=== PATIENT | male | born 1965 | race Caucasian/White ===

== ENCOUNTER → 2024-10-30 | Outpatient (CLI) | payer MEDICAID, SELFPAY ==
--- NOTE | 2024-10-30 | XR_ITS ---
Examination: Bilateral wrists 6 views Technique: Wrist AP, oblique, lateral each wrist total 6 views Date and time of exam: October 30, 2024 1313 hours INDICATIONS: Bilateral wrist pain beginning one year ago. FINDINGS: Prominent osteopenia Bilateral mild to moderate diffuse narrowing radiocarpal intercarpal and carpometacarpal joints No fractures Soft tissue vascular calcification. No avascular necrosis No erosive arthritis IMPRESSION: Bilateral mild to moderate diffuse narrowing radiocarpal, intercarpal and carpometacarpal joints
--- NOTE | 2024-10-30 | XR_ITS ---
Examination: Bilateral hands, 6 views. Technique: AP, Oblique, Lateral each hand total 6 views Date and time of exam: October 30, 2024 1313 hours INDICATIONS: Bilateral hand pain beginning one year ago Findings: Moderate osteopenia Mild diffuse narrowing joints of the wrist and hand Mild to moderate osteoarthritis interphalangeal joints most prominent second through fifth digits distal interphalangeal joints bilaterally No erosive arthritis No fractures Soft tissue vascular calcification No natalia cortical bone destruction IMPRESSION: Osteoarthritis as above
== END | disposition home or self-care (01) ==
LOC: CDIM 11:20
PROVIDERS: PCP Family Medicine; Referring Provider Nurse Practitioner Gerontology; Visit Provider Nurse Practitioner Gerontology
DX: M19.042 Primary osteoarthritis, left hand (principal); M19.041 Primary osteoarthritis, right hand; M25.832 Other specified joint disorders, left wrist; M25.831 Other specified joint disorders, right wrist
CPT/HCPCS: 73110; 73130

== ENCOUNTER 2025-01-09 16:35 | Inpatient (IN) | payer MEDICAID, SELFPAY ==
--- NOTE | 2025-01-09 16:49 | EKG_ITS ---
[facility] Test Date: 2025-01-09 Pat Name: JOHAN PANDYA Department: Room: - Gender: Male Pcu Rn: : 1965 Requested By: Carlos Darby (DONNA) Order Number: [id number] Reading MD: Carlos Draby (LOBBY CONCIERGE) Measurements Intervals [place] Rate: 89 P: 25 WY: 144 QRS: -16 QRSD: 105 T: 51 QT: 381 QTc: 466 Interpretive Statements SINUS RHYTHM No previous ECG available for comparison /store/S0/[id number]/ecg/[id number].pdf
[2025-01-09 17:00] VITALS: BP 151/81; PULSE 89; RESP 20; TEMP 36.5; O2SAT 96; BMI 27.7
--- NOTE | 2025-01-09 17:20 | XR_ITS ---
Examination: CT abdomen and pelvis without contrast. Coronal 3-D reconstructions. Sagittal 2-D reconstructions. Date and time of exam:January 09, 2025 1841 hours Comparison December 31, 2003 INDICATIONS: Onset of abdominal pain today, history kidney stones CTDI: vol (mGy): 8.06 DLP: (mGycm): 549 Technique: Axial images of the abdomen have been obtained, 3 mm slice thickness Intravenous contrast material has not been administered. Low dose protocols were performed. One or more of the following dose reduction techniques were used; automated exposure control, adjustment of the mA and/or KV according to patient size, use of iterative reconstruction technique. Findings: No focal liver or splenic lesions No gallstones Fatty replacement in the pancreas Normal adrenal glands Perinephric stranding No hydronephrosis or ureteral calculi Aortic calcification no aneurysmal dilatation No bowel obstruction Normal appendix No diverticulitis No bladder mass or bladder calculi No prostatomegaly IMPRESSION: Prominent fatty replacement throughout the pancreas, clinical correlation is advised Perinephric stranding No hydronephrosis or ureteral calculi Normal appendix No bladder mass or bladder calculi
--- NOTE | 2025-01-09 17:20 | PD.EDRME ---
Rapid Medical Screening Exam RME Arrival date/time: 01/09/25 16:35 59-year-old male presents to the Emergency Department today for complaint of abdominal pain Chief Complaint: Dizziness Vital signs: Vital Signs Temperature 97.7 F 01/09/25 17:00 Pulse Rate 89 01/09/25 17:00 Respiratory Rate 20 01/09/25 17:00 Blood Pressure 151/81 H 01/09/25 17:00 Pulse Oximetry (%) 96 01/09/25 17:00 Oxygen Delivery Method Room Air 01/09/25 17:00
[2025-01-09 17:43] LABS: Basophils % (Auto) 0 % (0-2.5); Eosinophils % (Auto) 0 % (0-10); Hematocrit 46.8 % (41.0-53.0); Hemoglobin 16.9 g/dL (13.5-16.0); Immature Granulocytes % (Auto) 0 % (0-0); Immature Granulocytes Auto 0.06 Thou/mm3 (0.00-0.00); Lymphocytes # (Auto) 0.7 Thou/mm3 (1.0-4.8); Lymphocytes % (Auto) 5 % (10-50); Mean Corpuscular HGB Conc 36.1 g/dl (31.0-37.0); Mean Corpuscular Hemoglobin 31.2 pg (25.0-35.0); Mean Corpuscular Volume 86 fL (80-100); Monocytes # (Auto) 0.5 Thou/mm3 (0.0-0.8); Monocytes % (Auto) 3 % (0-12); Neutrophils % (Auto) 91 % (37-80); Nucleated Red Blood Cell % 0 /100 WBC (0); Platelet Count 244 Thou/mm3 (140-440); RDW Standard Deviation 38.8 fL (35.1-43.9); Red Blood Count 5.42 Miln/mm3 (4.50-5.90); White Blood Count 14.3 Thou/mm3 (3.8-10.6)
[2025-01-09 17:54] LABS: Alanine Aminotransferase 19 U/L (10-49); Albumin, Serum 4.8 gm/dL (3.5-5.0); Albumin/Globulin Ratio 1.7 (1.2-2.2); Alkaline Phosphatase 120 U/L (46-116); Anion Gap 22 (7-16); Aspartate Amino Transferase 21 U/L (0-34); BUN/Creatinine Ratio 17 Ratio (12-20); Bilirubin,Total 0.6 mg/dL (0.3-1.2); Blood Urea Nitrogen 19 mg/dL (9-23); Calcium 9.8 mg/dL (8.3-10.6); Calcium (Corrected) 9.8 mg/dL (8.5-10.1); Carbon Dioxide 18.4 mMol/L (20.0-31.0); Chloride 103 mMol/L (98-107); Creatinine (Component) 1.1 mg/dL (0.6-1.3); Estimated Creatinine Clearance 73.4 mL/min (>60); Globulin 2.8 gm/dL (2.3-3.5); Glucose 372 mg/dL (74-106); Lipase 25 U/L (12-53); Osmolality,Calculated 302 (275-295); Potassium 5.1 mMol/L (3.4-5.1); Sodium 143 mMol/L (136-145); Total Protein 7.6 gm/dL (5.7-8.2); Troponin I < 0.020 ng/mL (0.0-0.045); eGFR > 60 See Note
--- NOTE | 2025-01-09 20:27 | PC.NURSE ---
N/A FROM LOBBY WHEN CALLING FOR URINE SAMPLE
[2025-01-09 21:50] LABS: Collection Type, Urine Clean Catch
[2025-01-09 21:59] LABS: Bacteria,Urine Rare; Bilirubin,Urine Negative (Negative); Blood,Urine Negative (Negative); Clarity,Urine Clear (Clear/Hazy); Color,Urine Lt-Yellow (Lt Yel-Yel); Culture Indicated,Urine Not Indicated; Glucose, Urine 4+ (Negative); Ketones,Urine 3+ (Negative); Leukocyte Esterase,Urine Positive (Negative); Nitrite,Urine Negative (Negative); PH,Urine 5.5 (5.0-7.0); Protein,Urine Negative (Neg - Trace); RBC,Urine 18 /hpf (0-3); Specific Gravity,Urine 1.034 (1.001-1.035); Squamous Epithelial Cell,Urine 2 /hpf (0-5); Urobilinogen,Urine Negative mg/dL (0.0-1.0); WBC,Urine 8 /hpf (0-5)
[2025-01-09 23:00] VITALS: BP 147/77; PULSE 86; RESP 20; TEMP 36.6; O2SAT 95
[2025-01-10] VITALS (21 sets, daily range): BP systolic 134–160; BP diastolic 74–89; PULSE 70–97; RESP 12–20; TEMP 36.3–37; O2SAT 94–99; BMI 27.5
[2025-01-10 02:46] LABS: Lactate (Lactic Acid) 3.2 mMol/L (0.4-2.0)
[2025-01-10] MEDS: ONDANSETRON INJ 2 MG/ML INJ 2 ML 4 MG IVP (02:47)
[2025-01-10] MEDS: SODIUM CHLORIDE 0.9% 1000 ML 1,000 ML 999 ML IV ×2 (02:47→02:49)
[2025-01-10 02:48] LABS: Base Excess -10 (-3-3); HCO3 15 mEq/L (20-26); Inspired Oxygen, FIO2 21 %; O2 Saturation 98 % (91-98); PCO2 29 mmHg (32.0-48.0); PO2 93 mmHg (83-108); pH, Arterial 7.32 (7.35-7.45)
[2025-01-10 02:57] LABS: Beta Hydroxybutyrate > 6.4 mmol/L (<0.6)
[2025-01-10 02:57] LABS: Allen Test Performed/OK; Puncture Site Right Radial
[2025-01-10 03:18] LABS: Anion Gap 25 (7-16); BUN/Creatinine Ratio 17 Ratio (12-20); Blood Urea Nitrogen 22 mg/dL (9-23); Carbon Dioxide 16.4 mMol/L (20.0-31.0); Chloride 105 mMol/L (98-107); Creatinine (Component) 1.3 mg/dL (0.6-1.3); Estimated Creatinine Clearance 62.1 mL/min (>60); Glucose 333 mg/dL (74-106); Osmolality,Calculated 306 (275-295); Potassium 4.6 mMol/L (3.4-5.1); Sodium 146 mMol/L (136-145); eGFR > 60 See Note
--- NOTE | 2025-01-10 04:35 | PD.EDNV ---
Nausea/Vomit./Diarrhea-RME/HPI General Chief complaint: Dizziness Stated complaint: DIZZY, VOMITING STARTED 4AM Time Seen by Provider: 01/10/25 03:06 Arrival date/time: 01/09/25 16:35 RME / HPI RME / HPI Narrative: 01/09/25 16:35 59-year-old male presents to the Emergency Department today for complaint of abdominal pain DR ROD MAIN ED EVALUATION: 59 y/o male with Hx of Type II DM and HTN presents to ED c/o dizziness, nausea, vomiting, and elevated blood sugar x 24 hours. Patient denies Hx of DKA or any other associated symptoms or aggravating factors. No modifying factors, no radiation, no migration. No pain reported overall. No other concerns or complaints expressed at this time. Related Data Home Medications ?Medication ?Instructions ?Recorded ?Confirmed atorvastatin 40 mg tablet 40 mg PO HS 11/21/23 11/21/23 empagliflozin 25 mg tablet 25 mg PO QDAY 11/21/23 11/21/23 (Jardiance) lisinopril 20 12.5 - 20 tab PO QDAY 11/21/23 11/21/23 mg-hydrochlorothiazide 12.5 mg tablet sitagliptin phosphate 50 50 - 1,000 tab PO QDAY 11/21/23 11/21/23 mg-metformin 1,000 mg tablet (Janumet) sulfamethoxazole 800 160 - 180 tab PO BID 11/21/23 11/21/23 mg-trimethoprim 160 mg tablet Allergies Allergy/AdvReac Type Severity Reaction Status Date / Time No Known Allergies Allergy Verified 01/09/25 16:39 Review of Systems Review of Systems Systems Reviewed: All systems reviewed, normal except as documented Past Medical History Past Medical History CARDIAC: Positive Cardiac Disorders, Hypercholesterolemia and Hypertension ENDOCRINE: Positive Endocrine Disorders and Diabetes Mellitus Type 2 ED Exam Narrative Physical exam: GENERAL APPEARANCE: alert and oriented x 4, well-developed, well-nourished, no acute distress VITALS: All vitals were reviewed and the pulse ox is 99% on room air, which is normal according to my interpretation. HEENT: Normocephalic, atraumatic; pupils equal, round, reactive to light; EOMI; mucous membranes pink, moist; oropharynx clear NECK: Supple LUNGS: CTABL; no wheezes, no rales, no rhonchi HEART: Regular rate, regular rhythm; normal S1, S2; no murmurs ABDOMEN: non distended; normal BS; soft, no tenderness, no guarding, no rebound; no masses, no organomegaly, no hernia BACK: no CVA tenderness EXTREMITIES: atraumatic; no edema NEUROLOGIC: awake; alert and oriented x4; cranial nerves II-XII grossly intact; no focal sensory or motor deficits PSYCHIATRIC: appropriate mood and affect SKIN: warm, dry, normal color; no rashes Course Quality Measures none Orders Category Date Time Status EKG (ED ONLY) *Do not use* NOW Care 01/09/25 16:[address] abdomen pelvis wo con Stat Exams 01/09/25 17:20 Completed EKG (ED Only) Stat Exams 01/09/25 16:49 Draft ABG [Arterial Blood Gas] Stat Lab 01/10/25 02:43 Completed BMP [Basic Metabolic Panel] Stat Lab 01/10/25 02:39 Completed BMP [Basic Metabolic Panel] Stat Lab 01/10/25 04:44 Completed Beta Hydroxybutyrate Stat Lab 01/10/25 02:39 Completed CBC Stat Lab 01/09/25 17:26 Completed Comprehensive Metabolic Panel Stat Lab 01/09/25 17:26 Completed Lactic Acid [Lactate (Lactic Acid)] Stat Lab 01/10/25 02:39 Completed Lactic Acid, 3 HR Stat Lab 01/10/25 05:43 Ordered Lipase Stat Lab 01/09/25 17:26 Completed Troponin I Stat Lab 01/09/25 17:26 Completed UA, C/S IF [Urinalysis, C/S if Indicated] Stat Lab 01/09/25 21:40 Completed Ondansetron Inj [Zofran Inj] Med 01/10/25 02:32 Discontinued 4 mg IVP X1 ONE Sodium Chloride 0.9% 1000 ml [Ns] 1,000 ml Med 01/10/25 02:31 Discontinued IV 999 mls/hr Sodium Chloride 0.9% 1000 ml [Ns] 1,000 ml Med 01/10/25 02:32 Discontinued IV 999 mls/hr Vital Signs Vital signs: Vital Signs Temperature 97.7 F 01/09/25 17:00 Pulse Rate 89 01/09/25 17:00 Respiratory Rate 20 01/09/25 17:00 Blood Pressure 151/81 H 01/09/25 17:00 Pulse Oximetry (%) 96 01/09/25 17:00 Oxygen Delivery Method Room Air 01/09/25 17:00 Nausea/Vomiting/Diarrhea MDM Narrative MDM Narrative:: Scribe Attestation: I, Genie Ariza, am scribing for and in the presence of Dr. Rod. Provider Notation: Although this document has been carefully reviewed, there may still be some phonetic and other typographical errors.? These errors are purely grammatical due to imperfections in the software program and should not be construed in any way to? compromise the substance of the patient's medical care during this visit. Patient data External records reviewed:: [facility] previous records (Reviewed prior ED records from 11/21/23. Patient was seen for Bilateral diabetic foot ulcer associated with secondary diabetes mellitus.) Clinical information provided by:: patient Social determinants that could affect healthcare access:: none Patient has the following chronic illnesses:: Hypercholesterolemia, Hypertension, Diabetes Mellitus Type 2 How is presenting disease/condition affected by chronic disease/condition?: exacerbated by Evaluation data The following diagnostics were reviewed and interpreted by me:: lab results, radiology exam(s) and EKG tracing(s) (EKG manual reading, my interpretation: sinus rhythm, rate: 89 bpm, no ST elevation, no acute ischemic changes, interpreted as normal) Lab and/or radiology exams considered but not ordered:: None Interpretation Summary: RADIOLOGY Abdomen/Pelvis CT: Patient: JOHAN PANDYA. Record#: [id number] Birthdate: 1965 Age/Sex: 59 / M Location: [facility] Attending Dr: Ordering Physician: Mehnaz (DONNA)Carlos NP Date of Service: 01/09/25 Procedure(s): CT abdomen pelvis wo [facility] Accession Number(s): [id number] cc: Mehnaz REDDY)Carlos NP; Roshan Wallace MD; Lavon Mendez MD~ Examination: CT abdomen and pelvis without contrast. Coronal 3-D reconstructions. Sagittal 2-D reconstructions. Date and time of exam:January 09, 2025 1841 hours Comparison December 31, 2003 INDICATIONS: Onset of abdominal pain today, history kidney stones CTDI: vol (mGy): 8.06 DLP: (mGycm): 549 Technique: Axial images of the abdomen have been obtained, 3 mm slice thickness Intravenous contrast material has not been administered. Low dose protocols were performed. One or more of the following dose reduction techniques were used; automated exposure control, adjustment of the mA and/or KV according to patient size, use of iterative reconstruction technique. Findings: No focal liver or splenic lesions No gallstones Fatty replacement in the pancreas Normal adrenal glands Perinephric stranding No hydronephrosis or ureteral calculi Aortic calcification no aneurysmal dilatation No bowel obstruction Normal appendix No diverticulitis No bladder mass or bladder calculi No prostatomegaly IMPRESSION: Prominent fatty replacement throughout the pancreas, clinical correlation is advised Perinephric stranding No hydronephrosis or ureteral calculi Normal appendix No bladder mass or bladder calculi Dictated By: Lavon Mendez MD Signed By: <Electronically signed by Lavon Mendez MD in OV> 01/09/25 1926 Medications / Prescriptions Medications / Prescriptions considered but not ordered:: None Medication administrations:: Medication Administration History Discontinued Medications Sodium Chloride (Ns) 1,000 mls @ 999 mls/hr IV .Q1H1M ONE Stop: 01/10/25 03:31 Last Infusion: 01/10/25 03:53 Dose: Infused Documented By: Admin: 01/10/25 02:47 Dose: 999 mls/hr Documented By: DT Sodium Chloride (Ns) 1,000 mls @ 999 mls/hr IV .Q1H1M ONE Stop: 01/10/25 03:32 Last Infusion: 01/10/25 03:53 Dose: Infused Documented By: Admin: 01/10/25 02:49 Dose: 999 mls/hr Documented By: DT Ondansetron HCl (Ondansetron Inj 2 Mg/Ml Inj 2 Ml) 4 mg IVP X1 ONE; Protocol Stop: 01/10/25 02:33 Last Admin: 01/10/25 02:47 Dose: 4 mg Documented By: DT See above if any. Consultations Consultation(s) initiated? (list below): Yes Consultation #1 (Physician, Specialty, Details): Discussed with Dr. Morton for admission. Reviewed the patient?s HPI, PMHx, lab and/or radiology results. Discussed treatment plan. Will consult an admission to the hospitalist. Time: 05:54 Diagnosis Nausea Differential Diagnosis: gastroenteritis, drug-induced nausea and vomiting, dehydration and other (DKA) Most likely diagnosis given after review of the tests above:: DKA Admission Indicated Admission indicated?: indicated Explain why admission is indicated or not indicated:: DKA Admission Request Was there a request for admission?: Yes Admission Attestation Admission request attestation: Discussed case with [] from Hospitalist service regarding admission. Discussed patients ED course, exam findings, labs, and radiology results. The Hospitalist [agrees,declines] to accept the patient for admission. Disposition Plan Disposition Plan: Admit Discharge Plan Prescriptions/Referrals Prescriptions/Med Rec: No Action atorvastatin 40 mg tablet 40 mg PO HS lisinopril-hydrochlorothiazide 20-12.5 mg tablet 12.5 - 20 tab PO QDAY sulfamethoxazole-trimethoprim 800-160 mg tablet 160 - 180 tab PO BID Janumet 50-1,000 mg tablet 50 - 1,000 tab PO QDAY Jardiance 25 mg tablet 25 mg PO QDAY Referrals: Roshan Wallace MD [Primary Care Provider] - In 1 week Problem List Clinical Impression: DKA (diabetic ketoacidosis) Patient/Caregiver Discharge Instructions Print Language: Mozambican
[2025-01-10 05:30] LABS: Anion Gap 21 (7-16); BUN/Creatinine Ratio 20 Ratio (12-20); Blood Urea Nitrogen 20 mg/dL (9-23); Calcium 8.7 mg/dL (8.3-10.6); Carbon Dioxide 16.7 mMol/L (20.0-31.0); Chloride 109 mMol/L (98-107); Estimated Creatinine Clearance 80.7 mL/min (>60); Glucose 243 mg/dL (74-106); Osmolality,Calculated 303 (275-295); Potassium 4.3 mMol/L (3.4-5.1); Sodium 147 mMol/L (136-145); eGFR > 60 See Note
[2025-01-10 05:43] LABS: Reflex Lactate? Y
[2025-01-10 06:04] LABS: Lactic Acid, 3 HR 2.3 mMol/L (0.4-2.0)
--- NOTE | 2025-01-10 06:32 | PC.NURSE ---
[facility] CONTACTED IMAGES AND PKT SENT. DR JUSTIN SPOKE WITH DR. SOFIA RAMIREZ AT THIS TIME WILL PLACE ON WAIT LIST. [facility] [facility] CONTACTED IMAGES AND PKT SENT DR JUSTIN SPOKE WITH DR Henderson
--- NOTE | 2025-01-10 07:42 | PC.NURSE ---
Report received from pm nurse, patient lying in gurmey with at bedside with c/o feeling weak and dizzy. Per pm nurses patient awaiting evalulation by intensivists to be admitted for DKA, patient current FSBS 223, patient denies pain, denies n/v/d, skin is warm dry and pink, patient states he does feel weak, however, denies feeling dizzy. Call light within reach, patient has no other needs at this time. Will await further orders.
--- NOTE | 2025-01-10 07:52 | XR_ITS ---
Examination: AP chest single view TECHNIQUE: AP portable upright chest single view Date and time: January 10, 2025 0911 hours INDICATIONS: Shortness of breath congestion this week. FINDINGS: Normal heart size. Atelectasis, mild in the lingular segment No pneumonia or pulmonary edema Prominent osteopenia IMPRESSION: No pneumonia identified
--- NOTE | 2025-01-10 07:57 | PD.RESHP ---
Documentation for date of: 01/10/25 [facility] History of Present Illness Chief complaint: vomiting and dizziness History of present illness: Patient is [place]-speaking and history obtained via assistance of registered healthcare chief station engineer. Patient is a 59-year-old male past medical history for primary hypertension, hyperlipidemia, qht-khyefid-lawtswpiq diabetes mellitus type 2 with diabetic neuropathy and osteomyelitis left and right great toe presenting with a chief complaint of vomiting and dizziness. Patient says that 2 days ago he started to feel dizzy. Described as constant, not associated with orthostasis. Yesterday morning around 3 AM he woke up and had 3 episodes of black vomiting, denied any bilious vomiting. Since then he felt nauseous and was unable to tolerate any p.o. solids or liquids. Denied any dysuria, fever, diarrhea, sick contacts or recent travel. Also denied any pain in his feet but did describe intermittent sensations of paresthesia and burning in his feet. ED course: BP 151/81, pulse 89, RR 20, temp 90.7 F, SpO2 96% room air. Labs showed bicarb 16.7, beta hydroxybutyrate 6.4, lactic acid 3.2?>2.3, glucose 243. ABG showed pH 7.32, pCO2 29 Chest x-ray showed lingula atelectasis. No signs of consolidation, pulmonary edema or pleural effusion. EKG showed sinus rhythm, rate. No acute ST changes In the ED patient received normal saline 2L IVF bolus and ondansetron 4 Mg IV x 1. Patient will be admitted to the ICU for treatment and management of euglycemic DKA Review of Systems Review of Systems Narrative Review of Systems: GENERAL: Denies fever/chills or diaphoresis. HEENT: Denies headaches or visual changes. Denies discharge. Neuro: Denies unusual weakness or difficulty speaking. CARDIO: Denies chest pain or palpitations. PULM: Denies SOB, coughing or wheezing. GI: As above URO: Denies buring/itching/pain/urinary changes. MSK/EXT/SKIN: Denies joint/skeletal/muscle pain, issues/changes in upper or lower extremities, itchiness, or superficial pain. PSYCH: Cooperative, pleasant mood & affect. The rest of the review of systems is otherwise negative. Past Medical History Past Medical History Comments PMH COMMENT: Past medical history: NIDDM type II Diabetic neuropathy Hyperlipidemia Primary hypertension Osteomyelitis of bilateral left and right great toe Medication list: Atorvastatin 40 Mg p.o. at bedtime Lisinopril/HCTZ 1 tab p.o. daily Jardiance 25 Mg p.o. daily Janumet tab p.o. 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 Has 7 kids Tobacco use: Denies ETHO use: Denies Illicit drug use: Denies Social History Note: lives with . Patient slipped on shampoo in the bathroom 1 month ago and since then has uses a walker for ambulation Family History: No significant Exam Vital Signs Temp Pulse Resp BP Pulse Ox O2 Del Method 98.5 F 91 16 151/89 H 97 Room Air 01/10/25 07:36 01/10/25 07:47 01/10/25 07:36 01/10/25 07:36 01/10/25 07:36 01/10/25 07:36 Narrative Exam Constitutional Alert, oriented x 3 and mild distress. Elderly male HEENT Vision grossly intact. Patent nares. Trachea midline Respiratory Chest normal on inspection and clear auscultation bilaterally Cardiovascular S1 and S2 audible, RRR. No murmurs carotid bruit. No gross JVD. Abdominal Soft, obese and non tender to palpation in all quadrants. BS + Genitourinary No bladder tenderness, no flank pain. Normal to palpation Musculoskeletal Extremities tone within normal limits. No LE edema. Neurological CN II - XII grossly intact. Sensory neuropathy in stocking distribution up to L4 dermatome bilaterally Skin Warm, dry and intact. Toenails dry and cracked on bilateral feet, hammer toes Psychiatric Patient has good affect, is cooperative Results: Labs 01/11/25 05:12 01/11/25 05:12 Labs: Short CBC 01/09/25 Range/Units 17:26 WBC 14.3 H (3.8-10.6) Thou/mm3 Hgb 16.9 H (13.5-16.0) g/dL Hct 46.8 (41.0-53.0) % Plt Count 244 (140-440) Thou/mm3 BMP 01/09/25 01/10/25 01/10/25 17:26 02:39 04:44 Sodium 143 146 H 147 H Potassium 5.1 4.6 D 4.3 Chloride 103 105 109 H Carbon Dioxide 18.4 L 16.4 L 16.7 L BUN 19 22 20 Creatinine 1.1 1.3 1.0 Glucose 372 H 333 H 243 H D Calcium 9.8 10.0 8.7 Cardiac Enzymes 01/09/25 Range/Units 17:26 Troponin I < 0.020 (0.0-0.045) ng/mL Liver Function 01/09/25 Range/Units 17:26 Total Bilirubin 0.6 (0.3-1.2) mg/dL AST 21 (0-34) U/L ALT 19 (10-49) U/L Alkaline Phosphatase 120 H (46-116) U/L Albumin 4.8 (3.5-5.0) gm/dL Urine 01/09/25 Range/Units 21:40 Urine Color Lt-Yellow (Lt Yel-Yel) Urine Clarity Clear (Clear/Hazy) Urine pH 5.5 (5.0-7.0) Ur Specific [place] 1.034 (1.001-1.035) Urine Protein Negative (Neg - Trace) Urine Glucose (UA) 4+ A (Negative) ABG Interpretation ABG results: 01/10/25 02:43 ABG pH 7.32 L ABG pCO2 29 L ABG pO2 93 ABG HCO3 15 L ABG O2 Saturation 98 ABG Base Excess -10 L Quality Measures Quality Measures none Medications Home Medications and Allergies Home Medications ?Medication ?Instructions ?Recorded ?Confirmed ?Type atorvastatin 40 mg tablet 40 mg PO HS 11/21/23 01/11/25 History empagliflozin 25 mg tablet 25 mg PO QDAY 11/21/23 01/11/25 History (Jardiance) lisinopril 20 12.5 - 20 tab PO QDAY 11/21/23 01/11/25 History mg-hydrochlorothiazide 12.5 mg tablet sitagliptin phosphate 50 50 - 1,000 tab PO BIDWM 11/21/23 01/11/25 History mg-metformin 1,000 mg tablet (Janumet) sulfamethoxazole 800 160 - 180 tab PO BID 11/21/23 01/11/25 History mg-trimethoprim 160 mg tablet Allergies Allergy/AdvReac Type Severity Reaction Status Date / Time No Known Allergies Allergy Verified 01/09/25 16:39 Visit Medications Acetaminophen (Acetaminophen 325 Mg Tablet) 650 mg PO Q6H PRN PRN Reason: Fever >100 or pain Stop: 02/09/25 07:48 Dextrose (Dextrose 50%-Water Inj 50 Ml Syringe) 25 ml IV [id number] PRN PRN Reason: Blood Sugar - Low Heparin Sodium (Porcine) (Heparin Sod Inj 5000 Unit/Ml Vial) 5,000 unit SC BID NICOL Stop: 01/24/25 08:59 Potassium Chloride (Kcl Ivpb) 10 meq in 100 mls @ 100 mls/hr IV .Q1H PRN PRN Reason: IF POTASSIUM LESS THAN 3.3 Stop: 02/09/25 07:51 Magnesium Sulfate (Magnesium Sulfate Ivpb) 2 gm in 50 mls @ 25 mls/hr IV .Q2H PRN PRN Reason: PER DKA PROTOCOL Stop: 02/09/25 07:51 Insulin Human Regular 100 unit (/ IV Miscellaneous Supplies) 100 mls @ 8.029 mls/hr IV .[id number] PRN; Protocol PRN Reason: PER PROTOCOL Stop: 02/09/25 07:51 Dextrose/Lactated Ringer's (D5-Lr) 1,000 mls @ 250 mls/hr IV .Q4H PRN PRN Reason: PER PROTOCOL Stop: 02/09/25 07:51 Lactated Ringer's (Lactated Ringers) 1,000 mls @ 250 mls/hr IV .Q4H PRN PRN Reason: PER PROTOCOL Stop: 01/11/25 07:51 Potassium Chloride 20 meq/ (Lactated Ringer's) 1,010 mls @ 250 mls/hr IV .Q4H3M PRN PRN Reason: K LEVEL 3.3 TO 5.3mM/L Stop: 02/09/25 07:51 Potassium Chloride 40 meq/ (Lactated Ringer's) 1,020 mls @ 250 mls/hr IV .Q4H5M PRN PRN Reason: K LEVEL < 3.3 mM/L Stop: 02/09/25 07:51 Potassium Chloride 40 meq/ (Dextrose/Lactated Ringer's) 1,020 mls @ 250 mls/hr IV .Q4H5M PRN PRN Reason: K LEVEL < 3.3mM/L Stop: 02/09/25 07:51 Potassium Cl/Dextrose/Lact Ringer's (Kcl 20 Meq/L In D5-Lr) 20 meq in 1,000 mls @ 250 mls/hr IV .Q4H PRN PRN Reason: K LEVEL 3.3 TO 5.3 mM/L Stop: 02/09/25 07:51 Potassium Chloride (Kcl Ivpb) 10 meq in 100 mls @ 50 mls/hr IV PRN PRN PRN Reason: K LEVEL 3.3 to 5.3 & BG > 200 Stop: 02/09/25 07:51 Potassium Phosphate (Pot Phos 15 Mmol In Ns 250 Ml) 15 mmol in 250 mls @ 62.5 mls/hr IV PRN PRN PRN Reason: Phosphate <= 1mg/dL Stop: 02/09/25 07:51 Sodium Phosphate 15 mmol/ (Sodium Chloride) 255 mls @ 62.5 mls/hr IV .Q4H5M PRN PRN Reason: Phosphate <= 1mg/dL and K> than 5.3 Stop: 02/09/25 07:51 Lactated Ringer's (Lactated Ringers) 1,000 mls @ 1,000 mls/hr IV Q1H NICOL Stop: 01/10/25 09:59 Ondansetron HCl (Ondansetron Inj 2 Mg/Ml Inj 2 Ml) 4 mg IVP Q6H PRN; Protocol PRN Reason: NAUSEA OR VOMITING Stop: 02/09/25 07:48 Pantoprazole Sodium (Pantoprazole Inj 40 Mg Vial) 40 mg IVP BID NICOL Stop: 02/09/25 08:59 Sodium Bicarbonate (Sodium Bicarb Inj 8.4% Syr 50 Ml Syringe) 50 ml IV Q4HR PRN PRN Reason: For ph <= to 7.0 Stop: 02/09/25 07:51 Discontinued Medications Sodium Chloride (Ns) 1,000 mls @ 999 mls/hr IV .Q1H1M ONE Stop: 01/10/25 03:31 Last Infusion: 01/10/25 03:53 Dose: Infused Sodium Chloride (Ns) 1,000 mls @ 999 mls/hr IV .Q1H1M ONE Stop: 01/10/25 03:32 Last Infusion: 01/10/25 03:53 Dose: Infused Ondansetron HCl (Ondansetron Inj 2 Mg/Ml Inj 2 Ml) 4 mg IVP X1 ONE; Protocol Stop: 01/10/25 02:33 Last Admin: 01/10/25 02:47 Dose: 4 mg Assessment & Plan Plan Patient is a 59-year-old male past medical history for primary hypertension, hyperlipidemia, unj-egcszbv-gvymxasit diabetes mellitus type 2 with diabetic neuropathy and osteomyelitis left and right great toe presenting with a chief complaint of vomiting and dizziness. Patient will be admitted to the ICU for treatment and management of euglycemic DKA. ENDO NIDDM type II Euglycemic DKA DDx: Secondary to Jardiance use Dx: - pH 7.32, beta-hydroxybutyrate 6.4, bicarb 16.7, blood glucose 243. - Ketones severely elevated in setting of mildly elevated blood glucose and mild metabolic acidosis. Etiology likely euglycemic DKA secondary to Jardiance Rx: Insulin infusion, IV fluid hydration with LR/D5. Will replete electrolytes as necessary RRX: Insulin glargine 20U SC x 1, lispro 3U SC 3 times daily with meals and correction scale to cover any blood glucose spikes. Will stop insulin infusion 1 hour after subcutaneous insulin is given. HLD Dx: Home medication atorvastatin 40 Mg p.o. at bedtime Rx: Will order lipid panel for a.m. and titrate statin dose accordingly based on ASCVD NEURO Diabetic neuropathy Dx: Endorses history of intermittent burning and tingling sensation in his feet. Has ascending polyneuropathy up to L4 dermatome bilaterally Rx: Gabapentin 300 Mg p.o. x 1. Wound care referral for diabetic foot exam education RRX: Based on response, recommend to start on gabapentin 300 mg p.o. twice daily from tomorrow [facility] History of primary hypertension Dx: Currently BP 141/77. Home medication lisinopril/HCTZ 12.5?20. 1 tab p.o. daily Rx: To start on lisinopril 10 Mg p.o. daily while in hospital RRX: Recommend discontinuing lisinopril/HCTZ combination as outpatient and to continue with either an NATALIE/ARB PULM Lingular atelectasis Dx: Chest x-ray lingular atelectasis seen Rx: Incentive spirometry. Encourage patient to sit out of bed and ambulate once he can tolerate GI/Hep Nausea and vomiting DDx: Secondary to DKA Rx: Ondansetron 4 Mg IV Q6 hourly as needed Coffee-ground vomitus DDx: Racquel-Shabazz tear, PUD Dx: From history patient denied any symptoms of heartburn pre or post meal, also it has been 16 years since he moved from [place]. Risk of H. pylori and PUD low. Most likely dark vomitus from Racquel-Shabazz tear. Rx: Pantoprazole 40 Mg p.o. daily. RRX: Monitor for any further episodes and trend Hb. RENAL Lactic acidosis?resolved DDx: Secondary to DKA Dx: Lactic acid 3.2?>2.3 Rx: No need to further trend lactic acid HEME/ONC Leukocytosis DDx: Secondary to DKA Dx: WBC 13.1 Rx: Monitor on CBC ID History of osteomyelitis Dx: 11/20 foot x-ray showed bilateral osteomyelitis of great toes. Patient was discharged on 14-day course of Clindamycin Rx: - Empirically started on Zosyn 3.375 g IV Q6 hourly and doxycycline 100 Mg IV twice daily. - ESR, CRP, Pro-Henry, HIV and hep C ordered. Blood and urine cultures ordered ? Bilateral foot x-ray ordered RRX: Based on x-ray and inflammatory marker results, will decide on continued treatment with antibiotics ICU Health maintenance: Dispo: Admit to ICU for euglycemic DKA Diet: N.p.o. DVT ppx: Heparin 5000 units IV twice daily GI ppx: Protonix 40mg qD IV lines: 2 pIV Central line: No Arterial line: No Pepper: No Code status: FULL CODE Plan of care discussed with Attending Dr. Hai Smyth MD PGY 1 Disclaimer: This note was dictated by speech recognition. Minor errors in product controller may be present due to voice recognition software. Attending Provider Attestation/Addendum Patient seen and examined with above resident, Kirit Smyth MD. I agree with the findings, assessment, and plan of care as documented except for any differences below. Patient admitted with suspicion of euglycemic DKA. Patient notably is on Jardiance. No other evidence of intra-abdominal pathology. There was noted possible left lingular atelectasis though this was not correlated on abdominal CT though seen on chest film. Patient without any localized infection at this point. Patient placed on IV insulin will transition off to subcutaneous regimen once the patient has normalized bicarbonate and cleared anion gap. Procalcitonin reassuring that there is no infection. EKG was unremarkable for an acute ischemic event. Patient will be transitioned this evening and likely be able to transfer to medicine for ongoing management and optimization prior to discharge in coming days. Total critical care time: Personally spent 30 minutes for review of physiologic parameters, directing plan of care, coordination of care with other specialist, and counseling patient/ at bedside. This is exclusive of time spent teaching housestaff performing any separate billable procedures. Patient required critical care services for DKA without coma, seizures without localized infection, hypokalemia, and hypophosphatemia. Patient remains at significant risk for further morbidity and mortality warranting close monitoring and care when available in the intensive care unit.
--- NOTE | 2025-01-10 08:25 | PC.NURSE ---
Patient signed out AMA states I want to go, i don't want the 3rd platelets, patient educated on risks if she leaves without full plan of care, including possible patient verbalizes understanding, AMA form signed and placed on chart.
[2025-01-10 08:29] LABS: Basophils % (Auto) 0 % (0-2.5); Eosinophils % (Auto) 0 % (0-10); Hematocrit 43.3 % (41.0-53.0); Hemoglobin 15.2 g/dL (13.5-16.0); Immature Granulocytes % (Auto) 1 % (0-0); Immature Granulocytes Auto 0.06 Thou/mm3 (0.00-0.00); Lymphocytes % (Auto) 15 % (10-50); Mean Corpuscular HGB Conc 35.1 g/dl (31.0-37.0); Mean Corpuscular Hemoglobin 31.3 pg (25.0-35.0); Mean Corpuscular Volume 89 fL (80-100); Monocytes # (Auto) 1.1 Thou/mm3 (0.0-0.8); Monocytes % (Auto) 8 % (0-12); Neutrophils % (Auto) 76 % (37-80); Nucleated Red Blood Cell % 0 /100 WBC (0); Platelet Count 228 Thou/mm3 (140-440); RDW Standard Deviation 41.7 fL (35.1-43.9); Red Blood Count 4.86 Miln/mm3 (4.50-5.90); White Blood Count 13.1 Thou/mm3 (3.8-10.6)
[2025-01-10] MEDS: INSULIN REG 100 UNITS/100 ML 100 UNIT in PRE-MIXED 1 BAG 8.029 UNIT IV (08:33)
[2025-01-10] MEDS: RINGERS LACTATED 1000 ML 1,000 ML IV ×2 (08:34→09:38)
[2025-01-10 09:04] LABS: HIV (1&2) Antibody Rapid Non-Reactive
[2025-01-10 09:12] LABS: Albumin, Serum 4.1 gm/dL (3.5-5.0); Anion Gap 15 (7-16); BUN/Creatinine Ratio 19 Ratio (12-20); Blood Urea Nitrogen 19 mg/dL (9-23); Carbon Dioxide 17.9 mMol/L (20.0-31.0); Chloride 111 mMol/L (98-107); Estimated Creatinine Clearance 78.9 mL/min (>60); Glucose 226 mg/dL (74-106); Magnesium 2.2 mg/dL (1.6-2.6); Osmolality,Calculated 296 (275-295); Phosphorous 3.8 mg/dL (2.4-5.1); Potassium 4.8 mMol/L (3.4-5.1); Sodium 144 mMol/L (136-145); eGFR > 60 See Note
[2025-01-10] MEDS: PANTOPRAZOLE INJ 40 MG VIAL 80 MG IVP (09:32)
[2025-01-10] MEDS: HEPARIN SOD INJ 5000 UNIT/ML VIAL SC ×2 (09:33→21:01)
[2025-01-10] MEDS: DOXYCYCLINE INJ 100 MG in SODIUM CHLORIDE 0.9% (POP) 100 ML IV (09:33)
[2025-01-10] MEDS: PIPER/TAZO 3.375 GM PREMIX 3.375 GM/50 ML BAG IV ×2 (09:34→13:47)
[2025-01-10] MEDS: KCL 20 mEq/L in D5-LR 20 MEQ/1,000 ML BAG 250 MEQ IV ×2 (09:59→13:47)
[2025-01-10 10:05] LABS: Procalcitonin 0.08 ng/ml (0.0-0.49)
[2025-01-10 12:49] LABS: Albumin, Serum 3.5 gm/dL (3.5-5.0); Anion Gap 12 (7-16); BUN/Creatinine Ratio 18 Ratio (12-20); Blood Urea Nitrogen 16 mg/dL (9-23); Calcium 8.4 mg/dL (8.3-10.6); Calcium (Corrected) 8.8 mg/dL (8.5-10.1); Carbon Dioxide 20.3 mMol/L (20.0-31.0); Chloride 113 mMol/L (98-107); Creatinine (Component) 0.9 mg/dL (0.6-1.3); Estimated Creatinine Clearance 87.7 mL/min (>60); Glucose 177 mg/dL (74-106); Magnesium 1.9 mg/dL (1.6-2.6); Osmolality,Calculated 293 (275-295); Phosphorous 2.2 mg/dL (2.4-5.1); Potassium 4.1 mMol/L (3.4-5.1); Sodium 145 mMol/L (136-145); eGFR > 60 See Note
--- NOTE | 2025-01-10 13:05 | PC.NURSE ---
unable to complete med rec. Pt to bring medications later in the day
--- NOTE | 2025-01-10 13:19 | ESPR_ITS ---
Subjective Subjective Interval history: afebrile an on iv doxy and iv zosyn. underlying dm and htn Exam Vital Signs Temp Pulse Resp BP Pulse Ox O2 Del Method 98.2 F 83 13 136/77 H 95 Room Air 01/10/25 08:48 01/10/25 11:00 01/10/25 11:00 01/10/25 11:00 01/10/25 11:00 01/10/25 08:48 Narrative Exam if bc neg at 48hr ok to star rx planning. at any time, ok to do surgery but would repeat the xray first as the one on file dates to october. and he report only pain in his L knee. Objective - Internal Medicine Labs 01/10/25 08:15 01/10/25 12:00 Labs: Laboratory Results - last 24 hr 01/09/25 01/09/25 01/10/25 17:26 21:40 02:39 WBC 14.3 H RBC 5.42 Hgb 16.9 H Hct 46.8 MCV 86 MCH 31.2 MCHC 36.1 RDW Std Deviation 38.8 Plt Count 244 Neut % (Auto) 91 H Lymph % (Auto) 5 L [place] % (Auto) 3 Eos % (Auto) 0 Baso % (Auto) 0 Neut # (Auto) 13.0 H Lymph # (Auto) 0.7 L [place] # (Auto) 0.5 Eos # (Auto) 0.0 Baso # (Auto) 0.0 Immature Gran # (Auto) 0.06 H Absolute Nucleated RBC 0.00 Immature Gran % 0 Nucleated RBC % 0 Puncture Site ABG pH ABG pCO2 ABG pO2 ABG HCO3 ABG O2 Saturation ABG Base Excess FiO2 Sodium 143 146 H Potassium 5.1 4.6 D Chloride 103 105 Carbon Dioxide 18.4 L 16.4 L Anion Gap 22 H 25 H BUN 19 22 Creatinine 1.1 1.3 Estim Creat Clear Calc 73.4 62.1 eGFR > 60 > 60 BUN/Creatinine Ratio 17 17 Glucose 372 H 333 H Calculated Osmolality 302 H 306 H Lactic Acid 3.2 H Calcium 9.8 10.0 Corrected Calcium 9.8 Phosphorus Magnesium Total Bilirubin 0.6 AST 21 ALT 19 Alkaline Phosphatase 120 H Troponin I < 0.020 Total Protein 7.6 Albumin 4.8 Globulin 2.8 Albumin/Globulin Ratio 1.7 Lipase 25 Beta-Hydroxybutyrate/Acetoacetate > 6.4 H Procalcitonin Ur Collection Type Clean Catch Urine Color Lt-Yellow Urine Clarity Clear Urine pH 5.5 Ur Specific [place] 1.034 Urine Protein Negative Urine Glucose (UA) 4+ A Urine Ketones 3+ A Urine Blood Negative Urine Nitrite Negative Urine Bilirubin Negative Urine Urobilinogen (Auto) Negative Ur Leukocyte Esterase Positive Urine RBC 18 H Urine WBC 8 H Ur Squamous Epith Cells 2 Urine Bacteria Rare Ur Culture Indicated? Not Indicated HIV 1&2 Antibody Rapid 01/10/25 01/10/25 01/10/25 02:43 04:44 05:56 WBC RBC Hgb Hct MCV MCH MCHC RDW Std Deviation Plt Count Neut % (Auto) Lymph % (Auto) [place] % (Auto) Eos % (Auto) Baso % (Auto) Neut # (Auto) Lymph # (Auto) [place] # (Auto) Eos # (Auto) Baso # (Auto) Immature Gran # (Auto) Absolute Nucleated RBC Immature Gran % Nucleated RBC % Puncture Site Right Radial ABG pH 7.32 L ABG pCO2 29 L ABG pO2 93 ABG HCO3 15 L ABG O2 Saturation 98 ABG Base Excess -10 L FiO2 21 Sodium 147 H Potassium 4.3 Chloride 109 H Carbon Dioxide 16.7 L Anion Gap 21 H BUN 20 Creatinine 1.0 Estim Creat Clear Calc 80.7 eGFR > 60 BUN/Creatinine Ratio 20 Glucose 243 H D Calculated Osmolality 303 H Lactic Acid 2.3 H Calcium 8.7 Corrected Calcium Phosphorus Magnesium Total Bilirubin AST ALT Alkaline Phosphatase Troponin I Total Protein Albumin Globulin Albumin/Globulin Ratio Lipase Beta-Hydroxybutyrate/Acetoacetate Procalcitonin Ur Collection Type Urine Color Urine Clarity Urine pH Ur Specific [place] Urine Protein Urine Glucose (UA) Urine Ketones Urine Blood Urine Nitrite Urine Bilirubin Urine Urobilinogen (Auto) Ur Leukocyte Esterase Urine RBC Urine WBC Ur Squamous Epith Cells Urine Bacteria Ur Culture Indicated? HIV 1&2 Antibody Rapid 01/10/25 01/10/25 08:15 12:00 WBC 13.1 H RBC 4.86 Hgb 15.2 Hct 43.3 MCV 89 MCH 31.3 MCHC 35.1 RDW Std Deviation 41.7 Plt Count 228 Neut % (Auto) 76 Lymph % (Auto) 15 [place] % (Auto) 8 Eos % (Auto) 0 Baso % (Auto) 0 Neut # (Auto) 10.0 H Lymph # (Auto) 2.0 [place] # (Auto) 1.1 H Eos # (Auto) 0.0 Baso # (Auto) 0.0 Immature Gran # (Auto) 0.06 H Absolute Nucleated RBC 0.00 Immature Gran % 1 H Nucleated RBC % 0 Puncture Site ABG pH ABG pCO2 ABG pO2 ABG HCO3 ABG O2 Saturation ABG Base Excess FiO2 Sodium 144 145 Potassium 4.8 D 4.1 D Chloride 111 H 113 H Carbon Dioxide 17.9 L 20.3 Anion Gap 15 12 BUN 19 16 Creatinine 1.0 0.9 Estim Creat Clear Calc 78.9 87.7 eGFR > 60 > 60 BUN/Creatinine Ratio 19 18 Glucose 226 H 177 H Calculated Osmolality 296 H 293 Lactic Acid Calcium 9.0 8.4 Corrected Calcium 9.0 8.8 Phosphorus 3.8 2.2 L Magnesium 2.2 1.9 Total Bilirubin AST ALT Alkaline Phosphatase Troponin I Total Protein Albumin 4.1 D 3.5 D Globulin Albumin/Globulin Ratio Lipase Beta-Hydroxybutyrate/Acetoacetate Procalcitonin 0.08 Ur Collection Type Urine Color Urine Clarity Urine pH Ur Specific [place] Urine Protein Urine Glucose (UA) Urine Ketones Urine Blood Urine Nitrite Urine Bilirubin Urine Urobilinogen (Auto) Ur Leukocyte Esterase Urine RBC Urine WBC Ur Squamous Epith Cells Urine Bacteria Ur Culture Indicated? HIV 1&2 Antibody Rapid Non-Reactive ABG Interpretation ABG results: 01/10/25 02:43 ABG pH 7.32 L ABG pCO2 29 L ABG pO2 93 ABG HCO3 15 L ABG O2 Saturation 98 ABG Base Excess -10 L Assessment & Plan A&P Narrative osteo of foot by xray in November 2024 with no rx at this time dm II, a1c pending htn hld. note that abx only kill germs so please evaluate circulation as part of a 'potential for healing' eval . I can check in again Wednesday am I will find him even if he downgrades to floor. hiv neg. ordered hep c for am and await a1c, cx, esr/crp, and further imaging since last xrays are from November and he only has pain in his L knee and no other sx of note Time Spent With Patient Time: Total time spent is greater than 50% in coordination of care (as documented) at patient's floor/unit and/or counseling patient:
--- NOTE | 2025-01-10 16:26 | XR_ITS ---
Examination: Foot bilateral, 6 views Technique: AP, oblique, lateral views each foot total 6 views Date and time of exam: January 10, 2025 1631 hours INDICATIONS: Redness swelling and pain infection involving both feet beginning 2 days ago FINDINGS: Bilateral severe osteopenia Soft tissue swelling left first digit No natalia areas of cortical bone destruction Soft tissue vascular calcification IMPRESSION: No natalia areas of cortical bone destruction
[2025-01-10] MEDS: INSULIN GLARGINE (Lantus) 5 UNIT/0.05 ML (PER 5 UNITS) 20 UNIT SC (16:33)
--- NOTE | 2025-01-10 16:43 | ESCONSULT_ITS ---
RE: JOHAN PANDYA : 1965 DATE OF CONSULTATION: 01/10/2025 REFERRING PHYSICIAN: Dr. Gamez REASON FOR CONSULTATION: Left knee pain without range of motion, limitations and abnormal x-rays dating back to November. HISTORY OF PRESENT ILLNESS: The patient is a pleasant gentleman. He has not had any recent imaging. He is admitted for DKA. His A1c is pending. He has hypertension and hyperlipidemia as well. Surgical history is none. ALLERGIES: NONE NOTED. IMMUNIZATIONS: Last tetanus is not known. He has not had flu shot every year. He has had one COVID vaccine. He has not had pneumococcal vaccination. FAMILY HISTORY: Unremarkable. SOCIAL HISTORY: He lives with his . 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 PHYSICAL EXAMINATION: General: The patient is pleasant, alert, and cooperative. ABDOMEN: His left foot is uninflamed and the left knee is the only thing that shows an irregularity, but both feet are uninflamed. In fact, there is no involvement of the toes as suggested by radiology. I note on review that the distal phalanges are where the problems are, but those are often difficult to evaluate by the radiologist. IMPRESSION: His sed rate in November was just 22, so it is possible that those are fairly unimpressive. ASSESSMENT: I have a tendency to not treat him at all unless we find some signs of infection, so you want to repeat the x-rays. We will get a sed rate and C-reactive protein tomorrow and acute hepatitis panel , but it is unlikely that he has viral hepatitis. I note that his HIV test is negative. We will check on him superficially on Wednesday. DT: 14:31:08 TT: 16:24:00 Ref: [id number] - TID: [id number]
--- NOTE | 2025-01-10 17:35 | ESPR_ITS ---
Documentation for date of: 01/10/25 Subjective Subjective Interval history: Patient is a 59-year-old male with past medical history of primary hypertension, hyperlipidemia, pfa-rjyekqs-ncmfmauaa diabetes mellitus on Janumet and Jardiance, was admitted to ICU for a glycemic DKA requiring insulin drip. Patient was seen and examined at bedside. No acute events was noted, patient transition to subcutaneous insulin 20 units x 1, also started on 3 times daily with meals lispro, will continue close monitor, Jardiance is stopped. Hemodynamically patient is stable, x-ray of the foot was ordered which was negative for any cortical bone destruction, noticed to have soft tissue swelling on the left first digit, soft tissue vascular calcification, bilateral severe osteopenia. And antibiotics were stopped. Exam Vital Signs Temp Pulse Resp BP Pulse Ox O2 Del Method 98.6 F 75 19 141/77 H 94 L Room Air 01/10/25 16:01/10/25 16:01/10/25 16:01/10/25 16:00 01/10/25 16:01/10/25 16:00 Narrative Exam GENERAL: no acute distress, AAO x3, well nourished. HEENT: Head AT/ NC. Mucous membranes moist. PERRL. NECK: Supple, no lymphadenopathy, no carotid bruits. CARDIOVASCULAR: RRR. Normal S1/S2, No m/r/g. No pitting edema of bilateral LEs. RESPIRATORY: CTAB. No wheezing, rhonchi, crackles. GASTROINTESTINAL: Abdomen soft, non tender no palpable masses. Bowel sounds present in all 4 quadrants. MUSCULOSKELETAL:? No cyanosis or edema, no visible joint swelling. NEUROLOGICAL: CN II-XII grossly intact. No focal deficits. Bilateral sensation loss on bilateral lower extremity, PSYCHIATRIC: Awake and alert, not agitated, normal mood and affect. INTEGUMENTARY: No obvious rashes, no jaundice, normal turgor. Objective Labs 01/11/25 05:12 01/11/25 05:12 Labs: Laboratory Results - last 24 hr 01/09/25 01/09/25 01/10/25 17:26 21:40 02:39 WBC 14.3 H RBC 5.42 Hgb 16.9 H Hct 46.8 MCV 86 MCH 31.2 MCHC 36.1 RDW Std Deviation 38.8 Plt Count 244 Neut % (Auto) 91 H Lymph % (Auto) 5 L [place] % (Auto) 3 Eos % (Auto) 0 Baso % (Auto) 0 Neut # (Auto) 13.0 H Lymph # (Auto) 0.7 L [place] # (Auto) 0.5 Eos # (Auto) 0.0 Baso # (Auto) 0.0 Immature Gran # (Auto) 0.06 H Absolute Nucleated RBC 0.00 Immature Gran % 0 Nucleated RBC % 0 Puncture Site ABG pH ABG pCO2 ABG pO2 ABG HCO3 ABG O2 Saturation ABG Base Excess FiO2 Sodium 143 146 H Potassium 5.1 4.6 D Chloride 103 105 Carbon Dioxide 18.4 L 16.4 L Anion Gap 22 H 25 H BUN 19 22 Creatinine 1.1 1.3 Estim Creat Clear Calc 73.4 62.1 eGFR > 60 > 60 BUN/Creatinine Ratio 17 17 Glucose 372 H 333 H Calculated Osmolality 302 H 306 H Lactic Acid 3.2 H Calcium 9.8 10.0 Corrected Calcium 9.8 Phosphorus Magnesium Total Bilirubin 0.6 AST 21 ALT 19 Alkaline Phosphatase 120 H Troponin I < 0.020 Total Protein 7.6 Albumin 4.8 Globulin 2.8 Albumin/Globulin Ratio 1.7 Lipase 25 Beta-Hydroxybutyrate/Acetoacetate > 6.4 H Procalcitonin Ur Collection Type Clean Catch Urine Color Lt-Yellow Urine Clarity Clear Urine pH 5.5 Ur Specific [place] 1.034 Urine Protein Negative Urine Glucose (UA) 4+ A Urine Ketones 3+ A Urine Blood Negative Urine Nitrite Negative Urine Bilirubin Negative Urine Urobilinogen (Auto) Negative Ur Leukocyte Esterase Positive Urine RBC 18 H Urine WBC 8 H Ur Squamous Epith Cells 2 Urine Bacteria Rare Ur Culture Indicated? Not Indicated HIV 1&2 Antibody Rapid 01/10/25 01/10/25 01/10/25 02:43 04:44 05:56 WBC RBC Hgb Hct MCV MCH MCHC RDW Std Deviation Plt Count Neut % (Auto) Lymph % (Auto) [place] % (Auto) Eos % (Auto) Baso % (Auto) Neut # (Auto) Lymph # (Auto) [place] # (Auto) Eos # (Auto) Baso # (Auto) Immature Gran # (Auto) Absolute Nucleated RBC Immature Gran % Nucleated RBC % Puncture Site Right Radial ABG pH 7.32 L ABG pCO2 29 L ABG pO2 93 ABG HCO3 15 L ABG O2 Saturation 98 ABG Base Excess -10 L FiO2 21 Sodium 147 H Potassium 4.3 Chloride 109 H Carbon Dioxide 16.7 L Anion Gap 21 H BUN 20 Creatinine 1.0 Estim Creat Clear Calc 80.7 eGFR > 60 BUN/Creatinine Ratio 20 Glucose 243 H D Calculated Osmolality 303 H Lactic Acid 2.3 H Calcium 8.7 Corrected Calcium Phosphorus Magnesium Total Bilirubin AST ALT Alkaline Phosphatase Troponin I Total Protein Albumin Globulin Albumin/Globulin Ratio Lipase Beta-Hydroxybutyrate/Acetoacetate Procalcitonin Ur Collection Type Urine Color Urine Clarity Urine pH Ur Specific [place] Urine Protein Urine Glucose (UA) Urine Ketones Urine Blood Urine Nitrite Urine Bilirubin Urine Urobilinogen (Auto) Ur Leukocyte Esterase Urine RBC Urine WBC Ur Squamous Epith Cells Urine Bacteria Ur Culture Indicated? HIV 1&2 Antibody Rapid 01/10/25 01/10/25 08:15 12:00 WBC 13.1 H RBC 4.86 Hgb 15.2 Hct 43.3 MCV 89 MCH 31.3 MCHC 35.1 RDW Std Deviation 41.7 Plt Count 228 Neut % (Auto) 76 Lymph % (Auto) 15 [place] % (Auto) 8 Eos % (Auto) 0 Baso % (Auto) 0 Neut # (Auto) 10.0 H Lymph # (Auto) 2.0 [place] # (Auto) 1.1 H Eos # (Auto) 0.0 Baso # (Auto) 0.0 Immature Gran # (Auto) 0.06 H Absolute Nucleated RBC 0.00 Immature Gran % 1 H Nucleated RBC % 0 Puncture Site ABG pH ABG pCO2 ABG pO2 ABG HCO3 ABG O2 Saturation ABG Base Excess FiO2 Sodium 144 145 Potassium 4.8 D 4.1 D Chloride 111 H 113 H Carbon Dioxide 17.9 L 20.3 Anion Gap 15 12 BUN 19 16 Creatinine 1.0 0.9 Estim Creat Clear Calc 78.9 87.7 eGFR > 60 > 60 BUN/Creatinine Ratio 19 18 Glucose 226 H 177 H Calculated Osmolality 296 H 293 Lactic Acid Calcium 9.0 8.4 Corrected Calcium 9.0 8.8 Phosphorus 3.8 2.2 L Magnesium 2.2 1.9 Total Bilirubin AST ALT Alkaline Phosphatase Troponin I Total Protein Albumin 4.1 D 3.5 D Globulin Albumin/Globulin Ratio Lipase Beta-Hydroxybutyrate/Acetoacetate Procalcitonin 0.08 Ur Collection Type Urine Color Urine Clarity Urine pH Ur Specific [place] Urine Protein Urine Glucose (UA) Urine Ketones Urine Blood Urine Nitrite Urine Bilirubin Urine Urobilinogen (Auto) Ur Leukocyte Esterase Urine RBC Urine WBC Ur Squamous Epith Cells Urine Bacteria Ur Culture Indicated? HIV 1&2 Antibody Rapid Non-Reactive ABG Interpretation ABG results: 01/10/25 02:43 ABG pH 7.32 L ABG pCO2 29 L ABG pO2 93 ABG HCO3 15 L ABG O2 Saturation 98 ABG Base Excess -10 L Quality Measures Quality Measures none Assessment & Plan Assessment Current Active Medications: Generic Name Dose Route Start Last Admin Trade Name Freq PRN Reason Stop Dose Admin Acetaminophen 650 mg 01/10/25 07:49 Acetaminophen 325 Mg Tablet PO 02/09/25 07:48 Q6H PRN Fever >100 or pain Dextrose 25 ml 01/10/25 07:52 Dextrose 50%-Water Inj 50 Ml Syringe IV [id number] PRN Blood Sugar - Low Dextrose 50 ml 01/10/25 16:22 Dextrose 50%-Water Inj 50 Ml Syringe IV 02/09/25 16:21 Q15MIN PRN BG <50 OR BG <70 & pt unresponsive Glucagon 1 mg 01/10/25 16:22 Glucagon Inj 1 Mg Vial IM Q15MIN PRN BG <70, and no IV access Heparin Sodium (Porcine) 5,000 unit 01/10/25 09:00 01/10/25 09:33 Heparin Sod Inj 5000 Unit/Ml Vial SC 01/24/25 08:59 5,000 unit BID NICOL Administration Magnesium Sulfate 2 gm in 50 mls @ 25 mls/hr 01/10/25 07:52 Magnesium Sulfate Ivpb IV 02/09/25 07:51 .Q2H PRN PER DKA PROTOCOL Insulin Human Regular 100 unit 100 mls @ 8.029 mls/hr 01/10/25 07:52 01/10/25 15:00 / IV Miscellaneous Supplies IV 02/09/25 07:51 0.025 unit/kg/hr .[id number] PRN 2.007 mls/hr PER PROTOCOL Titration Protocol 0.1 UNIT/KG/HR Lactated Ringer's 1,000 mls @ 250 mls/hr 01/10/25 07:52 Lactated Ringers IV 01/11/25 07:51 .Q4H PRN PER PROTOCOL Potassium Chloride 10 meq in 100 mls @ 100 mls/hr 01/10/25 11:46 Kcl Ivpb IV 02/09/25 11:45 .Q1H PRN IF POTASSIUM LESS THAN 3.3 Dextrose/Lactated Ringer's 1,000 mls @ 250 mls/hr 01/10/25 11:47 D5-Lr IV 02/09/25 11:46 .Q4H PRN PER PROTOCOL Potassium Chloride 20 meq/ 1,010 mls @ 250 mls/hr 01/10/25 11:47 Lactated Ringer's IV 02/09/25 11:46 .Q4H3M PRN K LEVEL 3.3 TO 5.3mM/L Potassium Chloride 40 meq/ 1,020 mls @ 250 mls/hr 01/10/25 11:47 Lactated Ringer's IV 02/09/25 11:46 .Q4H5M PRN K LEVEL < 3.3 mM/L Potassium Chloride 40 meq/ 1,020 mls @ 250 mls/hr 01/10/25 11:47 Dextrose/Lactated Ringer's IV 02/09/25 11:46 .Q4H5M PRN K LEVEL < 3.3mM/L Insulin Human Lispro 3 unit 01/10/25 17:30 Insulin Lispro (Admelog) 1 Unit/0.01 Ml Unit SC 02/09/25 17:29 TIDWM [facility] Insulin Human Lispro 0 unit 01/10/25 17:00 Insulin Lispro (Admelog) 1 Unit/0.01 Ml Unit SC 02/09/25 16:59 ACHS [facility] Protocol Ondansetron HCl 4 mg 01/10/25 07:49 Ondansetron Inj 2 Mg/Ml Inj 2 Ml IVP 02/09/25 07:48 Q6H PRN NAUSEA OR VOMITING Protocol Pantoprazole Sodium 40 mg 01/11/25 09:00 Pantoprazole 40 Mg Tablet PO 02/10/25 08:59 QDAY NICOL Plan Patient is a 59-year-old male past medical history for primary hypertension, hyperlipidemia, pyp-stqsijw-bgpozixus diabetes mellitus type 2 with diabetic neuropathy and osteomyelitis left and right great toe presenting with a chief complaint of vomiting and dizziness. Patient was be admitted to the ICU for treatment and management of euglycemic DKA. Anion gap was closed twice, patient transitioned from insulin drip to subacute insulin and successfully transferred to floor for further management. #Euglycemic DKA #Siu-kvtwvpj-puqangvzn DM type II Most likely patient had a euglycemic DKA in the setting of Jardiance use Presented with chief complaints of nausea, vomiting, Labs revealed acidosis with pH of 7.32, beta hydroxybutyrate 6.4, bicarb is 16.7, blood glucose 243 Patient was admitted to ICU for insulin drip, IV hydration, and close monitoring Anion gap was closed twice and patient successfully transition to Lantus 20 units subcu 2, lispro 3 units subcu at 3 times daily with meals ?Continue long-acting Lantus ? Continue lispro 3 units SQ 3 times daily with meals ? Continue insulin sliding scale ? Follow low carb consistent diet ? Continue close monitoring of electrolytes, replete as needed #? Osteomyelitis On 11/20 foot x-ray showed bilateral osteomyelitis of great toe Patient was discharged on 14 days course of clindamycin In ICU patient started empirically with Zosyn and doxycycline - Continue antibiotics ? Will follow-up with repeat foot x-ray ? Will follow-up with ESR, CRP, Pro-Henry, hepatitis and HIV panel ? Will follow-up with blood and urine culture ? ID is on board, will follow-up with recommendations #Diabetic neuropathy ? Continue gabapentin ? Patient will need close follow-up with podiatry and was given education #Nausea/vomiting?resolved #Episode of coffee-ground emesis, will monitor hemoglobin, patient denied similar episodes in the past, could be related to Racquel Shabazz tear, PUD, ? Continue pantoprazole 40 mg p.o. daily, will close monitor hemoglobin status and further symptoms Chronic conditions #Hyperlipidemia ? Will follow-up with a lipid panel, Home medication is atorvastatin at bedtime which will be restarted #Hypertension Home medication is lisinopril/hydrochlorothiazide daily ? Will start lisinopril 10 mg daily ? Will continue close monitor hemodynamics Disposition telemetry Diet n.p.o. DVT prophylaxis heparin twice daily GI PPI Pepper none CODE STATUS full code Patient care was discussed with attending physician Dr. Anette Singer MD PGY-2 Attending Provider Attestation/Addendum I have examined the patient, reviewed labs and imaging findings, discussed the case with the resident(s), and reviewed entered orders. I agree with the plan of care as outlined in this note. Dr. Anette MD
[2025-01-10] MEDS: Lisinopril 2.5 MG TABLET 10 MG PO (17:45)
[2025-01-10] MEDS: GABAPENTIN 300 MG CAPSULE PO (17:45)
[2025-01-10] MEDS: INSULIN LISPRO (AdmeLOG) 1 UNIT/0.01 ML UNIT SC ×2 (17:46→21:01)
[2025-01-10] MEDS: INSULIN LISPRO (AdmeLOG) 1 UNIT/0.01 ML UNIT 3 UNIT SC (17:46)
[2025-01-10] MEDS: ATORVASTATIN CALCIUM 20 MG TABLET 40 MG PO (21:00)
[2025-01-11] VITALS: BP 112/65; PULSE 67; RESP 19; TEMP 36.1; O2SAT 97
--- NOTE | 2025-01-11 00:51 | XR_ITS ---
Examination: Arterial duplex lower extremity study. Date and time of exam: January 11, 2025 0831 hours INDICATIONS: Bilateral leg pain 3 weeks Findings: Duplex sonographic imaging of the lower extremity arteries using B-mode/Rodriguez scale imaging and Doppler spectral analysis and color flow. Ankle brachial indices have been recorded. Right common femoral artery demonstrates triphasic flow. Right superficial femoral artery demonstrates biphasic flow. Right popliteal artery demonstrates biphasic flow. Right posterior tibial artery demonstrated biphasic flow. Right ankle/brachial index is 1.0. Left common femoral artery demonstrates triphasic flow. Left superficial femoral artery demonstrates biphasic flow. Left popliteal artery demonstrates biphasic flow. Left posterior tibial artery demonstrated biphasic flow. Left ankle/brachial index is 1.1. Impression: No significant obstructive arterial disease
[2025-01-11 04:00] VITALS: BP 129/71; PULSE 69; PULSE 70; RESP 16; TEMP 36.1; O2SAT 97
[2025-01-11] MEDS: GABAPENTIN 100 MG CAPSULE PO (05:06)
[2025-01-11 05:53] LABS: Basophils % (Auto) 0 % (0-2.5); Eosinophils # (Auto) 0.1 Thou/mm3 (0.0-0.5); Eosinophils % (Auto) 1 % (0-10); Hematocrit 42.5 % (41.0-53.0); Hemoglobin 14.6 g/dL (13.5-16.0); Immature Granulocytes % (Auto) 1 % (0-0); Immature Granulocytes Auto 0.04 Thou/mm3 (0.00-0.00); Lymphocytes # (Auto) 2.2 Thou/mm3 (1.0-4.8); Lymphocytes % (Auto) 26 % (10-50); Mean Corpuscular HGB Conc 34.4 g/dl (31.0-37.0); Mean Corpuscular Hemoglobin 31.5 pg (25.0-35.0); Mean Corpuscular Volume 92 fL (80-100); Monocytes # (Auto) 0.5 Thou/mm3 (0.0-0.8); Monocytes % (Auto) 6 % (0-12); Neutrophils # (Auto) 5.7 Thou/mm3 (1.8-7.7); Neutrophils % (Auto) 67 % (37-80); Nucleated Red Blood Cell % 0 /100 WBC (0); Platelet Count 197 Thou/mm3 (140-440); Red Blood Count 4.63 Miln/mm3 (4.50-5.90); White Blood Count 8.5 Thou/mm3 (3.8-10.6)
[2025-01-11 06:26] LABS: Albumin, Serum 3.6 gm/dL (3.5-5.0); Anion Gap 12 (7-16); BUN/Creatinine Ratio 14 Ratio (12-20); Blood Urea Nitrogen 11 mg/dL (9-23); C-Reactive Protein 0.5 mg/dL (0.0-0.9); Calcium 8.9 mg/dL (8.3-10.6); Calcium (Corrected) 9.2 mg/dL (8.5-10.1); Carbon Dioxide 23.2 mMol/L (20.0-31.0); Chloride 108 mMol/L (98-107); Creatinine (Component) 0.8 mg/dL (0.6-1.3); Estimated Creatinine Clearance 101.8 mL/min (>60); Glucose 145 mg/dL (74-106); Osmolality,Calculated 287 (275-295); Phosphorous 2.1 mg/dL (2.4-5.1); Potassium 4.8 mMol/L (3.4-5.1); Sodium 143 mMol/L (136-145); eGFR > 60 See Note
[2025-01-11 06:28] LABS: Sed Rate (ESR) 13 mm/hr (0-20)
[2025-01-11 06:43] VITALS: PULSE 71; RESP 16; RESP 92
[2025-01-11 06:46] LABS: Glucose Estimated Average 278 mg/dL (80-131); Hemoglobin A1C 11.3 % Hgb (4.8-6.0)
[2025-01-11 08:00] VITALS: BP 107/80; PULSE 69; PULSE 76; RESP 14; TEMP 36.2; O2SAT 93
[2025-01-11 08:34] LABS: Hepatitis C Antibody Non Reactive (Non React)
--- NOTE | 2025-01-11 09:36 | PC.SS ---
Patient Francesco Hopkins is a 59 Year old male admitted for DKA. SS met with patient and patient's , Gabriela Padilla at bedside to discuss discharge plan and verify demographic information. Patient's , reports she is patient's surrogate decision maker, [phone]. Patient is able to complete all ADL's independently, patient does not utilize any source of DME to assist with ambulation. PCP is Roshan Wallace. Choice of pharmacy is [facility]. At time of discharge patient's will provide transportation. Next of kin: , Gabriela Padilla Discharge Plan: Home PCP: Roshan Wallace
[2025-01-11 09:42] VITALS: BP 137/77; PULSE 73
[2025-01-11] MEDS: Lisinopril 20 MG TABLET PO (09:42)
[2025-01-11] MEDS: NAPH,KPH MBDB 1 PACKET (1.5 GM) PO (09:46)
[2025-01-11] MEDS: PANTOPRAZOLE 40 MG TABLET PO (09:46)
[2025-01-11] MEDS: HEPARIN SOD INJ 5000 UNIT/ML VIAL SC (09:47)
[2025-01-11] MEDS: INSULIN GLARGINE (Lantus) 5 UNIT/0.05 ML (PER 5 UNITS) 10 UNIT SC (09:54)
[2025-01-11 12:00] VITALS: BP 128/76; PULSE 72; PULSE 76; RESP 23; TEMP 36.4; O2SAT 95
--- NOTE | 2025-01-11 13:11 | ESDS_ITS ---
Planned Discharge Date 01/11/25 DS: Providers Provider Date of admission: 01/10/25 07:49 Primary care physician: Roshan Wallace MD Admitting Provider: Mau Valles MD Attending Provider on Admission: Collin Cheema MD Consults: 01/10/25 07:52 Referral Registered Dietitian Routine Comment: 01/10/25 09:14 Consult to Infectious Diseases Routine Comment: Ostemyelitis of Left and RIght First digit Consulting Provider: Justin Zhang 01/10/25 11:40 Referral Wound Care Routine Comment: Instructions: Severe diabetic neuropathy. Education on diabetic foot exam 01/11/25 07:46 Referral Registered Dietitian Routine Comment: Attending Provider on DC: Hao Guerin MD Discharging Provider: Hao Guerin MD DS: Diagnosis Problem List Completed Was Problem List Reviewed/Reconciled?: Yes Hospital Course Hospital Course Hospital course: Francesco Toledo is a 59-year-old male with a past medical history of hypertension, hyperlipidemia, and type 2 diabetes mellitus on Janumet and Jardiance who presented with 2 days of dizziness, nausea, and vomiting with associated decreased p.o. intake. Found to be in euglycemic DKA for which he was started on insulin drip and admitted to the ICU. Initial labs showed pH of 7.32, beta hydroxybutyrate 6.4, bicarb 16.7, and blood glucose of 243 with A1c of 11.3%. He was eventually transition to subcutaneous insulin glargine 20 units and started on 3 units lispro 3 times daily with meals. Patient noted to have a history of osteomyelitis but x-ray of the foot was ordered and negative for any cortical bone destruction but did have soft tissue swelling on the left first digit, soft tissue vascular calcification, bilateral severe osteopenia, and so antibiotics were stopped. Throughout hospital coures, no acute events occurred and sugars controlled on current regimen. Vital signs remained stable, leukocytosis resolved and CBC unremarkable, bicarb within normal limits, and CHEM panel largely unremarkable other than hypophosphatemia that was repleted. Thus, patient deemed stable for discharge with close follow-up with PCP for further management of his diabetes. Diagnoses during admission: #Euglycemic DKA #Ics-aqfxsus-robcpdaqw type 2 diabetes mellitus #Diabetic neuropathy #Nausea/vomiting, resolved #Episode of coffee-ground emesis #Hyperlipidemia #Hypertension Discharge instructions: ? Stop taking jardiance ? Start taking insulin degludec/Tresiba 10 units daily ? Continue taking all other home medications as prescribed ? Follow-up with PCP within 1-2 weeks of discharge ? If you do not have a PCP, you can follow-up at the [facility] (you can call [phone] to make an appointment) ? If you wish to follow-up with Dr. Guerin, schedule appointment on Wednesday afternoons ? Return to ED if symptoms worsen or recur ----- Plan discussed with attending physician Dr. Anette Guerin MD PGY-1 Internal Medicine Time Spent with Patient Time attestation: Total time spent providing and/or coordinating discharge services: Time spent: Greater than 30 minutes Exam Vital Signs Temp Pulse Resp BP Pulse Ox O2 Del Method 97.6 F 76 23 H 128/76 95 Room Air 01/11/25 12:00 01/11/25 12:01/11/25 12:01/11/25 12:00 01/11/25 12:01/11/25 12:00 Narrative Exam GENERAL: no acute distress, AAO x3, well nourished. HEENT: Head AT/ NC. Mucous membranes moist. PERRL. NECK: Supple, no lymphadenopathy, no carotid bruits. CARDIOVASCULAR: RRR. Normal S1/S2, No m/r/g. No pitting edema of bilateral LEs. RESPIRATORY: CTAB. No wheezing, rhonchi, crackles. GASTROINTESTINAL: Abdomen soft, non tender no palpable masses. Bowel sounds present in all 4 quadrants. MUSCULOSKELETAL:? No cyanosis or edema, no visible joint swelling. NEUROLOGICAL: CN II-XII grossly intact. No focal deficits. Sensation loss in bilateral lower extremities. PSYCHIATRIC: Awake and alert, not agitated, normal mood and affect. INTEGUMENTARY: No obvious rashes, no jaundice, normal turgor. Discharge Plan Plan Patient Disposition: HOME (Self Care) Care Plan Goals: ? Stop taking jardiance ? Start taking insulin degludec/Tresiba 10 units daily ? Continue taking all other home medications as prescribed ? Follow-up with PCP within 1-2 weeks of discharge ? If you do not have a PCP, you can follow-up at the [facility] (you can call [phone] to make an appointment) ? If you wish to follow-up with Dr. Guerin, schedule appointment on Wednesday afternoons ? Return to ED if symptoms worsen or recur Prescriptions/Referrals Prescriptions/Med Rec: New insulin degludec [Tresiba FlexTouch U-100] 100 unit/mL (3 mL) insulin pen 10 unit subcut QDAY Qty: 15 0RF (DME) pen needle, diabetic 29 gauge x 1/2 needle See Rx Instructions .Route Qty: 100 0RF Rx Instructions: Use for insulin administration only (DME) CGM Devices Misc See Rx Instructions .Route Qty: 1 0RF Rx Instructions: As directed (DME) FreeStyle Rubén 3 Sensor Device See Rx Instructions .Route Qty: 1 0RF Rx Instructions: As directed (DME) FreeStyle Rubén 3 [place] Misc See Rx Instructions .Route Qty: 1 0RF Rx Instructions: As directed (DME) Blood Glucose Test Strip See Rx Instructions .ROUTE .MEDSUPPLY Qty: 50 0RF Rx Instructions: Test blood sugars three times daily before meals ICD 10: E11.65 (DME) lancets Misc See Rx Instructions .ROUTE .MEDSUPPLY Qty: 100 0RF Rx Instructions: Test blood sugars three times daily before meals ICD 10: E11.65 Continued atorvastatin 40 mg tablet 40 mg PO HS lisinopril-hydrochlorothiazide 20-12.5 mg tablet 12.5 - 20 tab PO QDAY Janumet 50-1,000 mg tablet 50 - 1,000 tab PO BIDWM Discontinued sulfamethoxazole-trimethoprim 800-160 mg tablet 160 - 180 tab PO BID Jardiance 25 mg tablet 25 mg PO QDAY Referrals: Roshan Wallace MD [Primary Care Provider] - Patient/Caregiver Discharge Instructions Education Materials: CGM, Managing Type 2 Diabetes, How to Check Your Blood Sugar, Diabetes: Sick-Day Plan, Diabetes: Meal Planning, Diabetes: Ways to Take Medicine, Diabetes and High Blood Pressure Print Language: Indonesian Stand Alone Forms: Wendy Award Info., Patient Portal Info Letter Discharge Order Discharge Orders: Discharge (Routine); Ordered 01/11/25 Ordered By: Hao Guerin Quality Discharge Quality Measures VTE prophylaxis Attestestation Attestation I have examined the patient, reviewed labs and imaging findings, discussed the case with the resident(s), and reviewed entered orders. I agree with the plan of care as outlined in this note. Time Spent: [address] Anette MD
== END 2025-01-11 13:35 | disposition home or self-care (01) | DRG 420 ==
LOC: SERX 01-10 03:06 → SERHOLD 01-10 08:21 → S2SX 01-10 08:46 → S2NX 01-10 19:04
PROVIDERS: Internal Medicine Infectious Disease; Nurse Practitioner Primary Care; Admitting Provider Internal Medicine Critical Care Medicine; Emergency Provider Emergency Medicine; PCP Family Medicine; Visit Provider Student in an Organized Health Care Education/Training Program
DX: E11.10 Type 2 diabetes mellitus with ketoacidosis without coma (principal); I10 Essential (primary) hypertension; E11.40 Type 2 diabetes mellitus with diabetic neuropathy, unspecified; E11.69 Type 2 diabetes mellitus with other specified complication; E83.39 Other disorders of phosphorus metabolism; M85.80 Other specified disorders of bone density and structure, unspecified site; E78.00 Pure hypercholesterolemia, unspecified; D72.829 Elevated white blood cell count, unspecified; M86.8X7 Other osteomyelitis, ankle and foot; J98.11 Atelectasis; Z79.4 Long term (current) use of insulin; Z79.84 Long term (current) use of oral hypoglycemic drugs; Z79.899 Other long term (current) drug therapy
CPT/HCPCS: 36415; 36600; 71045; 73630; 74176; 80048; 80053; 80069; 81001; 82010; 82803; 83036; 83605; 83690; 83735; 84145; 84484; 85025; 85652; 86140; 86703; 86803; 87040; 87081; 87811; 93005; 93922; 96361; 96374; 99285; J1644; J1815; J2405; J2470; J2543; J3480; J3490; J7030; J7120; A9270